=== PATIENT | female | born 1950 | race Caucasian/White ===

== ENCOUNTER 2018-09-08 00:21 | Emergency (ER) | payer MEDICARE ==
[2018-09-08 01:12] LABS: BASOPHILS % (AUTO) 2.7 % (0.0-5.0); EOSINOPHILS % (AUTO) 3.5 % (0.0-8.0); HEMATOCRIT 38.9 % (36-48); LYMPHOCYTES % (AUTO) 27.3 % (21.0-51.0); MEAN CORPUSCULAR HEMOGLOBIN 28.8 pg (27.0-33.0); MEAN CORPUSCULAR HGB CONC 31.8 g/dL (32.0-36.0); MEAN CORPUSCULAR VOLUME 90.7 fL (79-99); MONOCYTES % (AUTO) 6.7 % (3.0-13.0); NEUTROPHILS % (AUTO) 59.8 % (40.0-77.0); NUCLEATED RED BLOOD CELLS 0.2 % (0.0-0.19); PLATELET COUNT (AUTO) 278 K/uL (130-400); RED BLOOD CELL COUNT(AUTO) 4.29 MIL/uL (4.00-5.50); RED CELL DISTRIBUTION WIDTH 13.7 % (11.0-15.5); WHITE BLOOD COUNT (AUTO) 8.3 K/uL (4.8-10.8)
[2018-09-08] MEDS ORDERED: ONDANSETRON HCL 4 MG/2 ML VIAL ONE (01:14)
[2018-09-08] MEDS ORDERED: KETOROLAC TROMETHAMINE 30MG/ML ONE (01:15)
[2018-09-08] MEDS ORDERED: MORPHINE SULFATE 8 MG/ML VIAL ONE (01:15)
[2018-09-08 01:18] LABS: BILIRUBIN,URINE Negative (NEGATIVE); COLOR,URINE Yellow (YELLOW); GLUCOSE, URINE (UA) Negative (NEGATIVE); KETONES,URINE Negative (NEGATIVE); LEUKOCYTE ESTERASE ,URINE Moderate (NEGATIVE); NITRATE,URINE Negative (NEGATIVE); OCCULT BLOOD,URINE Negative (NEGATIVE); PROTEIN,URINE Negative (NEGATIVE); UROBILINOGEN,URINE 0.2 mg/dL (0.2-1.0)
[2018-09-08 01:19] LABS: CREATININE 0.9 mg/dL (0.5-1.5)
[2018-09-08 01:21] LABS: APPEARANCE,URINE CLEAR (CLEAR)
[2018-09-08 01:25] LABS: ALBUMIN 3.8 g/dL (3.5-5.0); BILIRUBIN,TOTAL 0.4 mg/dL (0.2-1.0); TOTAL PROTEIN, SERUM 7.9 g/dL (6.0-8.3)
[2018-09-08 01:25] LABS: RBC,URINE 0-1 /HPF (0-1)
[2018-09-08 01:26] LABS: BACTERIA,URINE Few /HPF (None Seen)
== END 2018-09-08 03:12 | disposition home or self-care (01) ==
LOC: EDH 00:21
DX: N39.0 Urinary tract infection, site not specified (principal); I10 Essential (primary) hypertension; Z90.710 Acquired absence of both cervix and uterus; Z90.49 Acquired absence of other specified parts of digestive tract; Z90.89 Acquired absence of other organs; Z98.890 Other specified postprocedural states; Z88.2 Allergy status to sulfonamides
CPT/HCPCS: 36415; 74176; 80053; 81001; 85025; 96374; 96375; 99284; J1885; J2270; J2405

== ENCOUNTER 2018-09-10 14:23 | Inpatient (IN) | payer MEDICARE ==
[~2018-09-10] VITALS: Ht 160 cm; Wt 87.6 kg
[2018-09-10 14:41] LABS: APPEARANCE,URINE Clear (CLEAR); BILIRUBIN,URINE Small (NEGATIVE); COLOR,URINE Dark Yellow (YELLOW); GLUCOSE, URINE (UA) Negative (NEGATIVE); KETONES,URINE Negative (NEGATIVE); LEUKOCYTE ESTERASE ,URINE Negative (NEGATIVE); NITRATE,URINE Negative (NEGATIVE); OCCULT BLOOD,URINE Negative (NEGATIVE); PROTEIN,URINE Negative (NEGATIVE); UROBILINOGEN,URINE 0.2 mg/dL (0.2-1.0)
[2018-09-10 15:01] LABS: BASOPHILS % (AUTO) 0.3 % (0.0-5.0); EOSINOPHILS % (AUTO) 0.9 % (0.0-8.0); HEMATOCRIT 35.1 % (36-48); LYMPHOCYTES % (AUTO) 9.8 % (21.0-51.0); MEAN CORPUSCULAR HEMOGLOBIN 30.1 pg (27.0-33.0); MEAN CORPUSCULAR HGB CONC 33.3 g/dL (32.0-36.0); MEAN CORPUSCULAR VOLUME 90.3 fL (79-99); MONOCYTES % (AUTO) 6.8 % (3.0-13.0); NEUTROPHILS % (AUTO) 82.2 % (40.0-77.0); PLATELET COUNT (AUTO) 257 K/uL (130-400); RED BLOOD CELL COUNT(AUTO) 3.89 MIL/uL (4.00-5.50); WHITE BLOOD COUNT (AUTO) 15.5 K/uL (4.8-10.8)
[2018-09-10 15:11] LABS: CREATININE 0.9 mg/dL (0.5-1.5); POTASSIUM 3.8 mmol/L (3.5-5.1)
[2018-09-10 15:13] LABS: INR 1.02 (0.85-1.15); PARTIAL THROMBOPLASTIN TIME 28.1 SEC (26.3-35.5); PROTHROMBIN TIME 10.7 SEC (9.6-11.6)
[2018-09-10 15:15] LABS: ALBUMIN 3.4 g/dL (3.5-5.0); BILIRUBIN,TOTAL 0.3 mg/dL (0.2-1.0); TOTAL PROTEIN, SERUM 7.7 g/dL (6.0-8.3)
[2018-09-10] MEDS ORDERED: CEFTRIAXONE SODIUM 1 GM ONE (18:28)
[2018-09-10] MEDS ORDERED: ONDANSETRON HCL 4 MG/2 ML VIAL IV PRN (20:00)
[2018-09-10] MEDS ORDERED: MORPHINE SULFATE 2 MG/ML 1ML SYG IV PRN (20:00)
[2018-09-10] MEDS ORDERED: MORPHINE SULFATE 4 MG/1ML SYG ONE (21:00)
[2018-09-10 21:15] VITALS: BP 138/52
[2018-09-10] MEDS: SODIUM CHLORIDE 0.9% 1000ML 1,000 ML IV SCH (22:07)
[2018-09-10] MEDS: ZOSYN 3.375GM+NS 50ML 50 ML IV SCH (22:10)
[2018-09-10] MEDS: PHENAZOPYRIDINE HCL 200 MG TABLET PO SCH (22:12)
[2018-09-10] MEDS: FAMOTIDINE/PF 20 MG/2 ML VIAL IV SCH (22:12)
[2018-09-10] MEDS: ENOXAPARIN SODIUM 30 MG/0.3 ML SQ SCH (22:20)
[2018-09-10] MEDS ORDERED: AEC81 PO (22:37)
[2018-09-10] MEDS ORDERED: NAPR220T57 PO (22:37)
[2018-09-10] MEDS ORDERED: LISI10TA7 PO (22:37)
[2018-09-10] MEDS ORDERED: CALC-190 PO (22:37)
[2018-09-10 23:22] VITALS: BP 139/68
[2018-09-11] MEDS ORDERED: MORPHINE SULFATE 4 MG/1ML SYG ONE (03:08)
[2018-09-11 04:18] VITALS: BP 115/95
[2018-09-11] MEDS: ZOSYN 3.375GM+NS 50ML 50 ML IV SCH ×3 (05:10→21:26)
[2018-09-11] MEDS: SODIUM CHLORIDE 0.9% 1000ML 1,000 ML IV SCH ×3 (05:24→22:21)
[2018-09-11 09:25] VITALS: BP 131/71
[2018-09-11] MEDS: FAMOTIDINE/PF 20 MG/2 ML VIAL IV SCH ×2 (11:12→21:27)
[2018-09-11] MEDS: PHENAZOPYRIDINE HCL 200 MG TABLET PO SCH ×3 (11:12→21:26)
[2018-09-11] MEDS: ENOXAPARIN SODIUM 30 MG/0.3 ML SQ SCH (11:14)
[2018-09-11 13:02] LABS: HEMATOCRIT 33.3 % (36-48); MEAN CORPUSCULAR HEMOGLOBIN 29.3 pg (27.0-33.0); MEAN CORPUSCULAR HGB CONC 32.4 g/dL (32.0-36.0); MEAN CORPUSCULAR VOLUME 90.4 fL (79-99); PLATELET COUNT (AUTO) 225 K/uL (130-400); RED BLOOD CELL COUNT(AUTO) 3.68 MIL/uL (4.00-5.50); RED CELL DISTRIBUTION WIDTH 13.8 % (11.0-15.5); WHITE BLOOD COUNT (AUTO) 11.7 K/uL (4.8-10.8)
[2018-09-11 13:09] VITALS: BP 161/65
[2018-09-11 13:23] LABS: CREATININE 0.8 mg/dL (0.5-1.5); POTASSIUM 4.1 mmol/L (3.5-5.1)
[2018-09-11] MEDS: HYDROCODONE/ACETAMINOPHEN 5/325 MG TAB PO PRN ×2 (13:53→22:17)
[2018-09-11 17:44] VITALS: BP 128/71
[2018-09-11 20:05] VITALS: BP 151/73
[2018-09-11 23:32] VITALS: BP 145/75
[2018-09-12 03:30] VITALS: BP 149/81
[2018-09-12] MEDS: ZOSYN 3.375GM+NS 50ML 50 ML IV SCH ×3 (04:59→21:00)
[2018-09-12 05:54] LABS: HEMATOCRIT 32.8 % (36-48); MEAN CORPUSCULAR HEMOGLOBIN 30.3 pg (27.0-33.0); MEAN CORPUSCULAR HGB CONC 33.5 g/dL (32.0-36.0); MEAN CORPUSCULAR VOLUME 90.5 fL (79-99); PLATELET COUNT (AUTO) 250 K/uL (130-400); RED BLOOD CELL COUNT(AUTO) 3.62 MIL/uL (4.00-5.50); RED CELL DISTRIBUTION WIDTH 13.7 % (11.0-15.5); WHITE BLOOD COUNT (AUTO) 7.6 K/uL (4.8-10.8)
[2018-09-12 06:25] LABS: CREATININE 0.9 mg/dL (0.5-1.5); POTASSIUM 3.9 mmol/L (3.5-5.1)
[2018-09-12 07:00] VITALS: BP 152/71
[2018-09-12] MEDS: LISINOPRIL 10 MG TABLET PO SCH (09:00)
[2018-09-12] MEDS ORDERED: CALCIUM 600 + VITAMIN D 400 TABLET PO SCH (09:00)
[2018-09-12] MEDS: PHENAZOPYRIDINE HCL 200 MG TABLET PO SCH ×3 (09:20→21:00)
[2018-09-12] MEDS: ASPIRIN 81 MG EC TAB PO SCH (09:23)
[2018-09-12] MEDS: FAMOTIDINE/PF 20 MG/2 ML VIAL IV SCH ×2 (09:24→21:00)
[2018-09-12] MEDS: ENOXAPARIN SODIUM 40 MG/0.4 ML SYRINGE SQ SCH (09:25)
[2018-09-12] MEDS: CALCIUM 600 + VITAMIN D 400 TABLET PO SCH (09:32)
[2018-09-12 11:00] VITALS: BP 141/66
[2018-09-12] MEDS ORDERED: LACTULOSE 20 GM/30 ML UDCUP PO SCH (11:15)
[2018-09-12 16:00] VITALS: BP 159/70
[2018-09-12 20:00] VITALS: BP 145/71
[2018-09-12] MEDS: DOCUSATE SODIUM 100 MG CAP PO SCH (21:00)
[2018-09-13] VITALS: BP 155/82
[2018-09-13 04:00] VITALS: BP 131/74
[2018-09-13] MEDS: ZOSYN 3.375GM+NS 50ML 50 ML IV SCH ×2 (05:43→13:00)
[2018-09-13 05:45] LABS: HEMATOCRIT 34.8 % (36-48); MEAN CORPUSCULAR HGB CONC 32.3 g/dL (32.0-36.0); MEAN CORPUSCULAR VOLUME 89.9 fL (79-99); PLATELET COUNT (AUTO) 261 K/uL (130-400); RED BLOOD CELL COUNT(AUTO) 3.88 MIL/uL (4.00-5.50); RED CELL DISTRIBUTION WIDTH 13.6 % (11.0-15.5)
[2018-09-13 05:59] LABS: CREATININE 0.8 mg/dL (0.5-1.5); POTASSIUM 3.7 mmol/L (3.5-5.1)
[2018-09-13 07:00] VITALS: BP 140/72
[2018-09-13] MEDS ORDERED: ACETAMINOPHEN EXTENDED RELEASE 650 MG TABLET PO PRN (08:30)
[2018-09-13] MEDS: DOCUSATE SODIUM 100 MG CAP PO SCH (09:00)
[2018-09-13] MEDS: LISINOPRIL 10 MG TABLET PO SCH (09:23)
[2018-09-13] MEDS: CALCIUM 600 + VITAMIN D 400 TABLET PO SCH (09:24)
[2018-09-13] MEDS: PHENAZOPYRIDINE HCL 200 MG TABLET PO SCH ×2 (09:25→14:27)
[2018-09-13] MEDS: ASPIRIN 81 MG EC TAB PO SCH (09:26)
[2018-09-13] MEDS: FAMOTIDINE/PF 20 MG/2 ML VIAL IV SCH (09:27)
[2018-09-13] MEDS: ENOXAPARIN SODIUM 40 MG/0.4 ML SYRINGE SQ SCH (09:27)
[2018-09-13 11:00] VITALS: BP 140/86
[2018-09-13] MEDS ORDERED: DOCU-116 PO (13:06)
[2018-09-13] MEDS ORDERED: LEVO500T2 PO (13:06)
[2018-09-13 16:00] VITALS: BP 136/84
== END 2018-09-13 17:50 | disposition home or self-care (01) | DRG 690 ==
LOC: EDH 14:23 → OBSVTOIN 19:20 → EDHIP 19:20 → 3AH 20:34
PROVIDERS: ADMIT Hospitalist; ATTEND Hospitalist
DX: N12 Tubulo-interstitial nephritis, not specified as acute or chronic (principal); R07.9 Chest pain, unspecified; I10 Essential (primary) hypertension; K59.00 Constipation, unspecified; Z96.652 Presence of left artificial knee joint; Z90.710 Acquired absence of both cervix and uterus
CPT/HCPCS: 36415; 71275; 74176; 80048; 80053; 81003; 82270; 82550; 83690; 84484; 85025; 85027; 85378; 85610; 85730; 87046; 87088; 93005; 93970; 97039; G0378; J0696; J1650; J2270; J2543; J3490; J7030